=== PATIENT | female | born 1990 | race Caucasian/White ===

== ENCOUNTER 2019-01-09 13:47 | Emergency (ER) | payer MEDICAID, OTHER ==
[2019-01-09 13:53] VITALS: BP 150/92; TEMP 98.9; BMI 26.0
[2019-01-09 14:16] LABS: URINE PREGNANCY TEST NEGATIVE (NEGATIVE)
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
--- NOTE | 2019-01-09 15:57 | CT ---
EXAM: CT cervical spine without contrast HISTORY: [facility] TECHNIQUE: Multi-slice transaxial helical with coronal and sagittal reformatted views. COMPARISON: None FINDINGS: No acute fracture or spondylolisthesis. Spinal alignment, vertebral body heights and intervertebral disc spaces are preserved. Paraspinal soft tissues are unremarkable. Partially visualized upper lungs are clear. IMPRESSION: No acute osseous abnormality.
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
== END 2019-01-09 16:18 | disposition home or self-care (01) ==
LOC: ED 13:47
DX: R51 Headache (principal); M54.5 Low back pain; M54.2 Cervicalgia; M25.551 Pain in right hip; M25.552 Pain in left hip; T14.8XXA Other injury of unspecified body region, initial encounter; V89.2XXA Person injured in unspecified motor-vehicle accident, traffic, initial encounter
CPT/HCPCS: 81025; 99283